=== PATIENT | male | born 1990 | race Caucasian/White ===

== ENCOUNTER 2018-10-07 08:35 | Emergency (ER) | payer SELFPAY ==
[2018-10-07] MEDS ORDERED: Famotidine 20 MG/2 ML SDV IVPUSH ONE (09:16)
[2018-10-07] MEDS ORDERED: Sodium Chloride 0.9% 10 ML Syringe FLUSH PRN (09:16)
[2018-10-07] MEDS ORDERED: Ondansetron 4 MG/2 ML SDV IVPUSH ONE (09:16)
[2018-10-07] MEDS ORDERED: Sodium Chloride 0.9% 1,000 ML IV SCH (09:30)
[2018-10-07] MEDS ORDERED: HYDROmorphone 1 MG/ML Syringe IVPUSH ONE (10:17)
[2018-10-07] MEDS ORDERED: LORazepam 2 MG/ML SDV IVPUSH ONE (10:17)
--- NOTE | 2018-10-07 11:01 | EDM.PDOC ---
ED HPI GENERAL MEDICAL PROBLEM - General Chief Complaint: Abdominal Pain Stated Complaint: SHARP PAIN IN STOMACH/CHEST PAIN Time Seen by Provider: 10/07/18 09:00 Source of Information: Reports: Patient, RN Notes Reviewed - History of Present Illness INITIAL COMMENTS - FREE TEXT/NARRATIVE: 20-year-old male comes in with upper and mid abdominal discomfort has been off and on for about a month worse the past several days. He has had nausea, decreased appetite but no vomiting or diarrhea. He states she's been under a lot of stress for the last few months, has been drinking alcohol very heavily. No radiation of pain up into the chest. No chest pain or difficulty breathing. His last alcohol was late last evening or early this morning. Upper Abdomen Pain Score (Numeric/FACES): 6 - Related Data Allergies Allergy/AdvReac Type Severity Reaction Status Date / Time No Known Allergies Allergy Verified 10/07/18 08:43 Home Meds: Home Meds Acetaminophen/HYDROcodone [Orient 325-5 MG] 1 tab PO Q6H PRN #14 tablet 10/07/18 [Rx] LORazepam [Ativan] 1 mg PO Q12HR #14 tablet 10/07/18 [Rx] Past Medical History Psychiatric History: Reports: Addiction, Anxiety - Past Surgical History Musculoskeletal Surgical History: Reports: Other (See Below) Other Musculoskeletal Surgeries/Procedures:: ACL replacement Social & Family History - Tobacco Use Smoking Status *Q: Current Every Day Smoker Years of Tobacco use: 8 Packs/Tins Daily: 0.5 - Caffeine Use Caffeine Use: Reports: Coffee - Alcohol Use Days Per Week of Alcohol Use: 7 Number of Drinks Per Day: 15 Total Drinks Per Week: 105 - Recreational Drug Use Recreational Drug Use: No ED ROS GENERAL - Review of Systems Review Of Systems: See Below Constitutional: Denies: Fever, Chills, Diaphoresis HEENT: Denies: Throat Pain Respiratory: Denies: Shortness of Breath, Pleuritic Chest Pain Cardiovascular: Denies: Chest Pain GI/Abdominal: Reports: Abdominal Pain, Decreased Appetite, Nausea. Denies: Diarrhea, Vomiting Musculoskeletal: Reports: No Symptoms Skin: Reports: No Symptoms Neurological: Reports: Dizziness. Denies: Trouble Speaking, Difficulty Walking ED EXAM, GI/ABD - Physical Exam Exam: See Below General Appearance: Alert, Moderate Distress Eyes: Bilateral: Normal Appearance Throat/Mouth: Normal Inspection, Normal Oropharynx Head: Atraumatic Neck: Supple Respiratory/Chest: No Respiratory Distress, Lungs Clear, Normal Breath Sounds Cardiovascular: Regular Rate, Rhythm GI/Abdominal Exam: Tender (Mild to moderate tenderness upper mid abdomen and right upper quadrant). No: Guarding, Rebound Back Exam: No: CVA Tenderness (L), CVA Tenderness (R) Extremities: Normal Inspection, Normal Range of Motion. No: Pedal Edema, Leg Pain Neurological: Alert, Oriented, No Motor/Sensory Deficits Skin Exam: Warm, Dry, Normal Color Course - Vital Signs Last Recorded V/S: Last Vital Signs Temp 98.1 F 10/07/18 08:44 Pulse 76 10/07/18 08:44 Resp 12 10/07/18 08:44 BP 141/85 H 10/07/18 08:44 Pulse Ox 100 10/07/18 08:44 - Orders/Labs/Meds Orders: Active Orders 24 hr Category Date Time Status Peripheral IV Care [RC] . DIRECTED Care 10/07/18 09:16 Active Peripheral IV Insertion Adult [OM.PC] Stat Oth 10/07/18 09:15 Ordered Labs: Laboratory Tests 10/07/18 10/07/18 Range/Units 09:21 09:21 WBC 8.28 (4.23-9.07) K/mm3 RBC 4.74 (4.63-6.08) M/mm3 Hgb 15.3 (13.7-17.5) gm/L Hct 43.1 (40.1-51.0) % MCV 90.9 (79.0-92.2) fl MCH 32.3 H (25.7-32.2) pg MCHC 35.5 (32.2-35.5) g/dl RDW Std Deviation 41.8 (35.1-43.9) fL Plt Count 263 (163-337) K/mm3 MPV 8.8 L (9.4-12.3) fl Neut % (Auto) 70.6 H (34.0-67.9) % Lymph % (Auto) 18.2 L (21.8-53.1) % [place] % (Auto) 10.3 (5.3-12.2) % Eos % (Auto) 0.6 L (0.8-7.0) Baso % (Auto) 0.2 (0.1-1.2) % Neut # (Auto) 5.84 H (1.78-5.38) K/mm3 Lymph # (Auto) 1.51 (1.32-3.57) K/mm3 [place] # (Auto) 0.85 H (0.30-0.82) K/mm3 Eos # (Auto) 0.05 (0.04-0.54) K/mm3 Baso # (Auto) 0.02 (0.01-0.08) K/mm3 Sodium 138 (136-145) mEq/L Potassium 3.7 (3.5-5.1) mEq/L Chloride 100 (98-107) mEq/L Carbon Dioxide 26 (21-32) mEq/L Anion Gap 15.7 H (5-15) BUN 8 (7-18) mg/dL Creatinine 0.9 (0.7-1.3) mg/dL Est Cr Clr Drug Dosing 122.20 mL/min Estimated GFR (MDRD) > 60 (>60) mL/min BUN/Creatinine Ratio 8.9 L (14-18) Glucose 85 (74-106) mg/dL Calcium 9.0 (8.5-10.1) mg/dL Total Bilirubin 0.9 (0.2-1.0) mg/dL AST 70 H (15-37) U/L ALT 101 H (16-63) U/L Alkaline Phosphatase 58 (46-116) U/L Total Protein 7.4 (6.4-8.2) g/dl Albumin 3.9 (3.4-5.0) g/dl Globulin 3.5 gm/dL Albumin/Globulin Ratio 1.1 (1-2) Lipase 1226 H (73-393) U/L Ethyl Alcohol 0.08 (0.00) gm% Meds: Medications Discontinued Medications Generic Name Dose Route Start Last Admin Trade Name Freq PRN Reason Stop Dose Admin Famotidine 20 mg 10/07/18 09:16 10/07/18 09:57 Pepcid IVPUSH 10/07/18 09:17 20 mg ONETIME ONE Administration Hydromorphone HCl 1 mg 10/07/18 10:17 10/07/18 10:38 Dilaudid IVPUSH 10/07/18 10:18 1 mg ONETIME ONE Administration Sodium Chloride 1,000 mls @ 999 mls/hr 10/07/18 09:30 10/07/18 09:35 Normal Saline IV 999 mls/hr ONETIME ROSANA Administration Lorazepam 1 mg 10/07/18 10:17 10/07/18 10:39 Ativan IVPUSH 10/07/18 10:18 1 mg ONETIME ONE Administration Ondansetron HCl 4 mg 10/07/18 09:16 10/07/18 09:57 Zofran IVPUSH 10/07/18 09:17 4 mg ONETIME ONE Administration Sodium Chloride 10 ml 10/07/18 09:16 10/07/18 09:57 Saline Flush FLUSH 10 ml ASDIRECTED PRN Administration Keep Vein Open - Re-Assessments/Exams Free Text/Narrative Re-Assessment/Exam: 10/07/18 19:14 Lipase did come back elevated at around 1200. Therefore he does have alcohol associated pancreatitis. We have given IV fluids, IV Zofran and even with that T does feel better. We also have given Pepcid 20 mg IV, IV Dilaudid and 1 mg Ativan IV. He does feel up to going home, he does not want to come into the hospital at this time. Discharge instructions as documented. Departure - Departure Time of Disposition: 11:11 Disposition: Home, Self-Care 01 Condition: Fair Clinical Impression: Abdominal pain Qualifiers: Abdominal location: upper abdomen, unspecified Qualified Code(s): R10.10 - Upper abdominal pain, unspecified Pancreatitis Qualifiers: Chronicity: acute Pancreatitis type: alcohol induced Acute pancreatitis complication: unspecified Qualified Code(s): K85.20 - Alcohol induced acute pancreatitis without necrosis or infection - Discharge Information Prescriptions: LORazepam [Ativan] 1 mg PO Q12HR #14 tablet Acetaminophen/HYDROcodone [Orient 325-5 MG] 1 tab PO Q6H PRN #14 tablet PRN Reason: Pain Instructions: Acute Pancreatitis Referrals: PCP,None [Primary Care Provider] - Forms: ED Department Discharge Additional Instructions: Avoid further alcohol, inflammation of your pancreas will not heal if you do continue drinking alcohol. Ativan which is a medication that will lessen your withdrawal symptoms 1 mg twice daily for the next 4-5 days as needed. You may take hydrocodone one half tablet or 1 full tablet every 6-8 hours if needed for severe pain. Do not drive when taking the hydrocodone and Ativan. Follow-up at our [facility] medical clinic for recheck in about 4-5 days, call [phone] for appointment. Also follow-up at [facility] today or tomorrow to visit with a counselor about outpatient treatment options that are available to help you. Call [facility] for appointment. Return to ED as needed if symptoms worsening in any way. - My Orders Last 24 Hours: My Active Orders 10/07/18 09:15 Peripheral IV Insertion Adult [OM.PC] Stat 10/07/18 09:16 Peripheral IV Care [RC] . DIRECTED - Assessment/Plan Last 24 Hours: My Active Orders 10/07/18 09:15 Peripheral IV Insertion Adult [OM.PC] Stat 10/07/18 09:16 Peripheral IV Care [RC] . DIRECTED
== END 2018-10-07 11:35 | disposition home or self-care (01) ==
LOC: JD.ED 08:35
DX: K85.20 Alcohol induced acute pancreatitis without necrosis or infection (principal); F17.210 Nicotine dependence, cigarettes, uncomplicated
CPT/HCPCS: 36415; 80053; 83690; 85025; 96361; 96374; 96375; 99284; G0480; J1170; J2060; J2405; J3490; J7040

== ENCOUNTER 2024-09-21 09:04 | Emergency (ER) | payer SELFPAY ==
[2024-09-21] MEDS: Thiamine 100 MG Tab PO ONE (10:05)
[2024-09-21] MEDS: Folic Acid 1 MG Tab PO ONE (10:05)
[2024-09-21] MEDS: Magnesium Oxide 400 MG Tab PO ONE (10:05)
[2024-09-21 10:28] LABS: BASOPHILS PERCENT AUTO 0.9 % (0.0-1.0); HEMATOCRIT 43.1 % (42.0-52.0); HEMOGLOBIN 15.4 gm/dl (14.0-18.0); IMMATURE GRAN ABSOLUTE AUTO 0.01 K/mm3 (0.00-0.05); IMMATURE GRAN PERCENT AUTO 0.3 % (0.0-0.4); LYMPHOCYTES ABSOLUTE AUTO 1.5 K/mm3 (1.0-4.8); LYMPHOCYTES PERCENT AUTO 45.5 % (24.0-44.0); MEAN CORPUSCULAR HGB CONC 35.7 g/dl (32.0-36.0); MEAN CORPUSCULAR VOLUME 92.5 fl (83.0-99.0); MEAN PLATELET VOLUME 9.3 fl (9.4-12.4); MONOCYTES ABSOLUTE AUTO 0.3 K/mm3 (0.0-0.8); MONOCYTES PERCENT AUTO 10.3 % (0.0-8.0); NEUTROPHILS ABSOLUTE AUTO 1.4 K/mm3 (1.8-7.7); PLATELET COUNT,PLT 137 K/mm3 (150-400); RED BLOOD CELL COUNT 4.66 M/mm3 (4.52-5.90); WHITE BLOOD CELL COUNT,WBC 3.21 K/mm3 (3.9-11.3)
[2024-09-21] MEDS ORDERED: Multivitamin Tab PO ONE (10:45)
[2024-09-21 10:51] LABS: ALBUMIN 3.5 g/dl (3.4-5.0); BILIRUBIN TOTAL 0.5 mg/dL (0.2-1.0); BUN/CREATININE RATIO 4.4 (14-18); CALCIUM 8.3 mg/dL (8.5-10.1); CREATININE 0.9 mg/dL (0.7-1.3); EST CRCL DRUG DOSING (CG) 115.65 mL/min; ETHANOL BLOOD MEDICAL 0.42 gm% (0.00); MAGNESIUM 1.9 mg/dL (1.8-2.4); PROTEIN TOTAL,TP 7.2 g/dl (6.4-8.2)
[2024-09-22] MEDS ORDERED: Multivitamin Tab PO ONE (09:40)
== END 2024-09-21 11:47 | disposition home or self-care (01) ==
LOC: JD.ED 09:04
DX: F10.10 Alcohol abuse, uncomplicated (principal); Y90.2 Blood alcohol level of 40-59 mg/100 ml; Z79.899 Other long term (current) drug therapy
CPT/HCPCS: 36415; 80053; 80307; 83735; 85025; 99283; A9270